=== PATIENT | female | born 1970 | race Caucasian/White ===

== ENCOUNTER 2022-08-15 09:28 | Emergency (ER) | payer SELFPAY ==
[~2022-08-15] VITALS: Ht 162.6 cm; Wt 79.0 kg
[2022-08-15] MEDS ORDERED: KETOROLAC 60MG/2ML VIAL IM ONE (10:15)
[2022-08-15] MEDS ORDERED: ONDANSETRON 4MG ODT PO ONE (10:15)
[2022-08-15] MEDS ORDERED: CYCL25PO15 MT ×3 (10:43→10:44)
[2022-08-15] MEDS ORDERED: IBUP-2029 MT ×3 (10:43→10:44)
[2022-08-15 11:00] VITALS: BP 112/59
== END 2022-08-15 11:03 | disposition home or self-care (01) ==
LOC: ER 09:44
DX: S39.011A Strain of muscle, fascia and tendon of abdomen, initial encounter (principal); V49.49XA Driver injured in collision with other motor vehicles in traffic accident, initial encounter; Y93.89 Activity, other specified; Y92.89 Other specified places as the place of occurrence of the external cause; Y99.8 Other external cause status
CPT/HCPCS: 96372; 99283; J1885; Q0162; Z7610